=== PATIENT | male | born 1970 | race Caucasian/White ===

== ENCOUNTER 2019-11-24 16:12 | Inpatient (IN) | payer OTHER ==
[~2019-11-24] VITALS: Ht 182.9 cm; Wt 130.2 kg
[2019-11-24] VITALS (14 sets, daily range): BP systolic 113–158; BP diastolic 73–103
--- NOTE | 2019-11-24 16:13 | NUR ---
KILLIAN FROM [facility] C/O HEADACHE AND HIGH BP 190S, PT IS AAOX4, NOT IN RESPIRATORY DISTRESS, HOOKED TO WARDROBE ASSISTANT, KEPT RESTED AND COMFORTABLE, WILL CONTINUE TO MONITOR.
--- NOTE | 2019-11-24 16:22 | NUR ---
SEEN AND EXAMINED BY .
[2019-11-24] MEDS ORDERED: CLONIDINE HCL 0.1 MG TABLET PO ONE (16:30)
[2019-11-24] MEDS ORDERED: hydrALAZINE HCL IV 20 MG VIAL IV ONE (16:30)
--- NOTE | 2019-11-24 16:35 | NUR ---
IV LINE ESTABLISHED, BLOOD DRAWN AND SENT TO LAB.
[2019-11-24 16:40] LABS: BASOPHILS # (AUTO) 0.1 /CMM (0.0-0.2); BASOPHILS % (AUTO) 0.5 % (0.0-2.0); EOSINOPHILS % (AUTO) 1.8 % (0.0-6.0); HEMATOCRIT 46 % (39-51); HEMOGLOBIN 15.7 g/dL (13.5-17.5); LYMPHOCYTES # (AUTO) 1.7 /CMM (0.8-4.8); MEAN CORPUSCULAR HGB CONC 34 g/dl (31.0-36.0); MEAN CORPUSCULAR VOLUME 89 fL (80-96); MONOCYTES % (AUTO) 9.3 % (2.0-12.0); NEUTROPHILS # (AUTO) 7.8 /CMM (1.8-8.9); NEUTROPHILS % (AUTO) 72.4 % (43.0-81.0); PLATELET COUNT (AUTO) 281 /CMM (150-450); RED BLOOD CELL COUNT(AUTO) 5.13 MIL/uL (4.5-6.0); WHITE BLOOD COUNT (AUTO) 10.7 K/uL (4.3-11.0)
[2019-11-24] MEDS ORDERED: hydrALAZINE HCL IV 20 MG VIAL ONE (16:41)
[2019-11-24 16:48] LABS: CALCIUM, SERUM 9.6 mg/dL (8.5-10.1); CARBON DIOXIDE 29 mmol/L (21-32); CHLORIDE 104 mmol/L (98-107); CREATININE 1.2 mg/dL (0.6-1.3); GLUCOSE 84 mg/dL (74-106); POTASSIUM 4.1 mmol/L (3.5-5.1); SODIUM SERUM 142 mmol/L (136-145); UREA NITROGEN, BLOOD 13 mg/dL (7-18)
--- NOTE | 2019-11-24 16:55 | NUR ---
PT IS BACK FROM THE CT SCAN.
[2019-11-24] MEDS ORDERED: NICARDIPINE IN NACL, ISO-OSM 200 ML IV PRN ×2 (17:30→18:00)
--- NOTE | 2019-11-24 17:45 | NUR ---
CALLED [facility], PAGED SADE KELLY NP
[2019-11-24 17:56] LABS: ALBUMIN 4.3 g/dL (3.4-5.0); BILIRUBIN,DIRECT 0.2 mg/dL (0.0-0.2); BILIRUBIN,TOTAL 1.1 mg/dL (0.2-1.0); TOTAL PROTEIN, SERUM 8.8 g/dL (6.4-8.2)
[2019-11-24] MEDS ORDERED: ACETAMINOPHEN 325 MG TABLET PO PRN (18:00)
[2019-11-24] MEDS ORDERED: ONDANSETRON HCL/PF 4 MG/2 ML VIAL IVP PRN (18:00)
[2019-11-24] MEDS ORDERED: MAGNESIUM HYDROXIDE 30 ML UDC PO PRN (18:00)
[2019-11-24] MEDS ORDERED: Z GUARD REMEDY 2 OZ OINT TP PRN (18:00)
[2019-11-24] MEDS ORDERED: MAG HYDROX/AL HYDROX/SIMETH 30 ML UDC PO PRN (18:00)
[2019-11-24] MEDS ORDERED: ONDANSETRON HCL/PF - ER 4 MG/2 ML VIAL IV ONE (18:00)
[2019-11-24] MEDS ORDERED: HYDROMORPHONE 1 MG/1 ML DISP.SYRIN IV ONE (18:00)
[2019-11-24] MEDS ORDERED: HYDROMORPHONE 1 MG/1 ML DISP.SYRIN ONE (18:05)
[2019-11-24] MEDS ORDERED: ONDANSETRON HCL/PF 4 MG/2 ML VIAL ONE (18:05)
--- NOTE | 2019-11-24 18:20 | NUR ---
REPORT GIVEN TO TERRELL GUADALUPE FOR [facility]
[2019-11-24] MEDS ORDERED: NITROGLYCERIN 0.4 MG/TAB BOTTLE SL PRN (18:30)
--- NOTE | 2019-11-24 19:00 | NUR ---
RN NOTE PT ARRIVED FROM ER WITH POLICEMEN, ON GURNEY, IV IN LEFT AC 20G, INTACT, PATENT, WITH NICARDIPINE DRIP 7MG/HR INFUSING, PT CO HEADACHE 06/28 AND BACK (PER PT - KIDNEY) PAIN 07/29. PT SR ON THE MONITOR, 89, BP 151/103 MMHG, TEMP 99.0, RR 17, NONLABORED. WILL ENDORSE TO RECEIVABLE EXECUTIVE.
--- NOTE | 2019-11-24 20:00 | NUR ---
LEARNING AND DEVELOPMENT ADMINISTRATOR NOTE: Received patient in bed, awake, alert and verbally responsive. Respiration even and unlabored saturating 100% in room air. No discomfort or pain noted at this time. HOB elevated. Patient was on police custody with handcuff on the (R) hand to the bed rail. (L) AC IV site 20G was noted intact and patent. Patient was admitted for Nicardipine drip, but BP at this time was 148/95 and HR 87. Will inform Maksim Mayfield DNP about this, and held the drip for now to prevent hypotension. Will closely monitor the patient. Complete body assessment was done. Skin was intact and dry. Urinal at the bedside was offered. Bed alarmed and locked at all times. Provided patient with cold water at the bedside. Patient denied any suicidal thoughts. Will continue to monitor. Admissions orders were written by Marques Lopez NP.
[2019-11-24] MEDS ORDERED: ENOXAPARIN SODIUM 40 MG/0.4 ML DISP.SYRIN SQ SCH (21:00)
--- NOTE | 2019-11-24 21:42 | NUR ---
RN NOTE: Patient was verbalizing pain on his lower back and headache. Current BP 141/94 HR 81. Offered Tylenol at this time, but he refused it and wanted a stronger pain medication. Patient stated "it will not help." Paged Maksim Mayfield DNP for orders. Patient made aware. 2 police officers were present at the bedside.
[2019-11-24] MEDS ORDERED: HYDROMORPHONE INJ 0.5 MG/0.5 ML SYRINGE IV PRN (22:00)
[2019-11-24] MEDS ORDERED: KETOROLAC TROMETHAMINE INJ 30 MG/ML VIAL IV ONE (22:00)
--- NOTE | 2019-11-24 22:00 | NUR ---
RN NOTE: Eddie Mayfield DNP called back and made him aware of the patient's concern. Hospitalist was also aware about the patient's blood pressure trend and patient's difficulty to urinate and refused olivo catheter insertion. Eddie Mayfield DNP ordered to hold the Nicardipine drip and continue to watch the patient's blood pressure.
[2019-11-25] VITALS (14 sets, daily range): BP systolic 102–150; BP diastolic 71–103
[2019-11-25 04:59] LABS: BASOPHILS % (AUTO) 0.5 % (0.0-2.0); EOSINOPHILS % (AUTO) 2.6 % (0.0-6.0); HEMATOCRIT 40 % (39-51); HEMOGLOBIN 13.4 g/dL (13.5-17.5); LYMPHOCYTES # (AUTO) 1.9 /CMM (0.8-4.8); LYMPHOCYTES % (AUTO) 20.2 % (20.0-44.0); MEAN CORPUSCULAR HGB CONC 34 g/dl (31.0-36.0); MEAN CORPUSCULAR VOLUME 89 fL (80-96); MONOCYTES # (AUTO) 0.7 /CMM (0.1-1.30); MONOCYTES % (AUTO) 7.6 % (2.0-12.0); NEUTROPHILS # (AUTO) 6.5 /CMM (1.8-8.9); NEUTROPHILS % (AUTO) 69.1 % (43.0-81.0); PLATELET COUNT (AUTO) 228 /CMM (150-450); RED BLOOD CELL COUNT(AUTO) 4.45 MIL/uL (4.5-6.0); WHITE BLOOD COUNT (AUTO) 9.4 K/uL (4.3-11.0)
[2019-11-25 05:22] LABS: THYROID STIMULATING HORMONE 1.402 uIU/mL (0.358-3.74)
[2019-11-25 05:26] LABS: CALCIUM, SERUM 8.6 mg/dL (8.5-10.1); CREATININE 1.3 mg/dL (0.6-1.3); MAGNESIUM 1.9 mg/dL (1.8-2.4); PHOSPHORUS 3.6 mg/dL (2.5-4.9); POTASSIUM 3.2 mmol/L (3.5-5.1)
[2019-11-25] MEDS ORDERED: HYDROMORPHONE 1 MG/1 ML DISP.SYRIN IV PRN (06:12)
--- NOTE | 2019-11-25 07:15 | NUR ---
RESOLUTION EXPERT NOTES RECEIVED PT AOX4 , NOT IN ACUTE DISTRESS , DENIES SOB AND CHEST PAIN , SPO2 OF 100% VIA RA , SR 89 ON BEDSIDE MONITOR , IV OF L AC # 20 PATENT AND INTACT , CC OF LOWER BACK AND BLADDER PAIN , 04/28 , WILL CONTINUE TO MONITOR
[2019-11-25] MEDS ORDERED: PANTOPRAZOLE 40 MG TABLET.DR PO SCH (07:30)
--- NOTE | 2019-11-25 07:30 | NUR ---
RN NOTE: Bedside report was given to TERRELL Camacho for continuity of care. Patient remained on 2 police custody. Patient was sleeping soundly in the bed. No urine output during the shift.
--- NOTE | 2019-11-25 08:06 | NUR ---
ROTARY DUMP OPERATOR NOTES PATIENT COMPLAINING OF BLADDER AND LOWE BACK PAIN 04/28 , DILAUDID 1MG PRN GIVEN , BLADDER SCAN DONE NOTED WITH > 576ML OF URINE , PER PT HE DIDN'T VOID LAST NIGHT AND HAVING HARD TIME VOIDING , WILL CALL
--- NOTE | 2019-11-25 08:30 | NUR ---
ACID SUPERVISOR NOTES SEEN AND EVALUATED BY SADE LAI , DISCUSSED CURRENT LABS , OFF CARDINE DRIP SINCE ADMISSION , BP WNL AFEBRILE , NO CHEST PAIN AND SOB, PT COMPLAINING OF LOWER BACK AND BLADDER PAIN , PRN DILAUDID GIVEN , PT VERBALIZED HE WAS LAST VOIDED YESTERDAY WITH SMALL AMOUNT OF URINE WITH DIFFICULTY , MAIL DELIVERER AWARE , ORDERED TO TO STRAIGHT CATH AND OK TO DC
[2019-11-25] MEDS ORDERED: TAMSULOSIN 0.4 MG CAP.SR.24H PO SCH (08:58)
[2019-11-25] MEDS ORDERED: ASPIRIN 81 MG TAB.CHEW PO SCH (09:00)
[2019-11-25] MEDS ORDERED: POTASSIUM CHLORIDE 20 MEQ TAB.PRT.SR PO SCH (09:00)
--- NOTE | 2019-11-25 09:00 | NUR ---
TELEHEALTH CASE MANAGER NOTES NOTIFIED SADE THAT WE ARE UNABLE TO INSERT STRAIGHT CATH DUE TO RESISTANCE , GEOPHYSICAL COMPUTER AWARE , WILL ORDER FLOMAX ,
[2019-11-25] MEDS ORDERED: TAMS-12 PO (09:04)
--- NOTE | 2019-11-25 09:53 | NUR ---
STONE RIGGER NOTES DISCHARGED PT STABLE , NO OTHER COMPLAINS , BP WNL SPO2 OF 100% VIA RA , NOT IN ACUTE DISTRESS , AFEBRILE , AOX4 , SR 79 ON BEDSIDE MONITOR , SKIN IS INTACT , NO WOUNDS NOTED , IV OF L AC # 20 REMOVED NO BLEEDING NOTED , DISCHARGED INSTRUCTIONS , MEDICATION AND FOLLOW UP WITH PCP EXPLAINED , PT VERBALIZED UNDERSTANDING , PROVIDED WITH HOSPITAL DOCUMENTATIONS , BELONGING LIST CHECKED , DISCHARGED TO RESIDENTIAL WITH 2 KITCHEN LEAD ESCORTS .
== END 2019-11-25 10:05 | DRG 305 ==
LOC: ER 16:15 → ICU 18:23
PROVIDERS: ADMIT Registered Nurse; ATTEND Registered Nurse
DX: I16.9 Hypertensive crisis, unspecified (principal); E66.01 Morbid (severe) obesity due to excess calories; E87.6 Hypokalemia; I10 Essential (primary) hypertension; Z87.442 Personal history of urinary calculi; Z68.38 Body mass index [BMI] 38.0-38.9, adult; Z91.14 Patient's other noncompliance with medication regimen; R07.89 Other chest pain; N40.0 Benign prostatic hyperplasia without lower urinary tract symptoms
CPT/HCPCS: 36415; 70450-TC; 71045-TC; 80048-TC; 80061-TC; 80076-TC; 83735-TC; 84100-TC; 84443-TC; 84484-TC; 85025-TC; 87081-TC; 93307-TC; G0378; J0360; J1170; J1650; J1885; J2405